=== PATIENT | female | born 1945 | race Caucasian/White ===

== ENCOUNTER → 2017-07-04 | Outpatient (CLI) | payer OTHER ==
[~2017-07-04] MED LIST: GUARPOW2; IMD2 PO; INSDGIPEN SQ; LVNIS100 SQ
--- NOTE | 2017-07-04 13:05 | DIAGNOSTIC IMAGING REPORT ---
Left axillary ultrasound CLINICAL HISTORY: LEFT ARMPIT, ENLARGED LYMPNODE, AXIALIARY COMPARISON STUDY: None. FINDINGS: Real-time sonographic imaging of the left axilla was performed. Within the left axilla there is a 3.0 x 2.5 x 2.6 cm round hypoechoic/cystic lesion. This is difficult to characterize given its location. IMPRESSION: A 3.0 x 2.5 x 2.6 cm round hypoechoic/cystic lesion within the left axilla. This is difficult to characterize due to its location deep within the left axilla. This could represent a small fluid collection such as a postoperative seroma or a necrotic lymph node. Contrast-enhanced chest CT should be considered for further evaluation. Electronically signed by: Juni Hair M.D. 07/04/2017 1:04 PM Dictated Date/Time: 07/04/2017 1:01 PM
== END | disposition home or self-care (01) ==
LOC: C.ULTR 11:30
PROVIDERS: ATTEND Internal Medicine Hematology
DX: C56.9 Malignant neoplasm of unspecified ovary (principal); Z15.01 Genetic susceptibility to malignant neoplasm of breast; Z15.02 Genetic susceptibility to malignant neoplasm of ovary; R59.0 Localized enlarged lymph nodes